=== PATIENT | male | born 1995 | race Caucasian/White ===

== ENCOUNTER 2017-02-22 21:02 | Emergency (ER) | payer BC, OTHER ==
[2017-02-22 21:21] VITALS: BP 141/91; PULSE 63; TEMP 98.8; BMI 25.8
--- NOTE | 2017-02-22 21:26 | PDOC ---
History of Present Illness - History of Present Illness Initial Comments: 02/22/17 21:33 The patient is a 21 year old male, with a significant past medical history GERD , who presents to the emergency department with cold and empty feeling to distal extremities, as well as, feeling jittery for 3 days. The patient states he woke up 3 days ago, after eating a super heavy meal the night before , with nausea, but denies vomiting. He states he has since been feeling jittery with a pressure-like headache. The patient also reports his hands and feet feel very cold, almost numb. The patient adds he has been spacing out and feeling as if he will pass out. The patient states he drinks three medium iced coffees daily, but only had one today. He denies chest pain and dizziness. He denies fever, chills, nausea, vomit, diarrhea and constipation. He denies dysuria, frequency, urgency and hematuria. PCP - Dr. Wagner ([facility]– [facility]) PAST MEDICAL HISTORY: no significant history PAST SURGICAL HISTORY: no significant history FAMILY HISTORY: no pertinent history SOCIAL HISTORY: denies illicit drug use. Denies tobacco use. Reports occasional alcohol use. Pt is a student in college, home for the summer now. ALLERGIES: As per nursing notes Adult ROS General: (+) feeling jittery. No fevers or chills, no weakness, no weight loss HEENT: No change in vision. No sore throat,. No ear pain CardioVascular: (+) shortness of breath. No chest pain. Respiratory:No cough, or wheezing. Gastrointestinal: no nausea, vomiting, diarrhea or constipation, No rectal bleeding Genitourinary: No dysuria, hematuria, or frequency Musculoskeletal: (+) bilateral hand and feet "cold, almost numb". No joint or muscle pain or swelling Neurologic: (+) pressure like headache. No vertigo, dizziness or loss of consciousness Psychiatric: nor depression Skin: No rashes or easy bruising Endocrine: no increased thirst or abnormal weight change Allergic: no skin or latex allergy All other systems reviewed and normal Adult Exam: General: Well-nourished well-developed individual, no acute distress HEENT: Throat: Normal, tonsils normal, no erythema or exudate Neck: Supple, no meningeal signs, no lymphadenopathy Eyes::Pupils equal reactive and round, extraocular motion intact Chest: Nontender to palpation Cardiac: S1-S2 normal, regular rate and rhythm, no murmurs rubs or gallops Respiratory: Lungs clear to auscultation bilateral Abdomen: Soft, nondistended, normal bowel sounds, nontender to palpation diffusely Extremities: Warm, dry, no cyanosis, clubbing, or edema Skin: No rashes Neuro: Alert and oriented x3, nonfocal exam, grossly intact, normal gait Psych: Normal mood and affect <Orly Masterson - Last Filed: 02/22/17 21:33> - General History Source: Patient Exam Limitations: No Limitations - History of Present Illness Initial Comments: 02/22/17 22:04 This is a 21-year-old male who comes in complaining of anxiety panic type symptoms. Patient was at his primary care doctor today with some hyperventilation and some paresthesias of his hands and perioral numbness. He was told that it is anxiety and the otherwise told to follow-up with a therapist. Patient now comes in because he was reading on the Internet and thinks he needs a workup for his symptoms. A basic workup was done including CBC and chemistries which were all normal. Patient was given Xanax with improvement of his symptoms Patient was told to follow-up with a therapist and discharged home with his mother. <Sendy Gilmore I - Last Filed: 02/22/17 22:05> - General Stated Complaint: FEELING JITTERY FOR COUPLE OF DAYS, HAS BEEN OCCUR Time Seen by Provider: 02/22/17 21:05 Past History <Orly Masterson - Last Filed: 02/22/17 21:33> - Past Medical History Other medical history: DENIES - Immunization History Immunization Up to Date: Yes - Psycho/Social/Smoking Cessation Hx Anxiety: No Suicidal Ideation: No Smoking Status: No Smoking History: Never smoked Have you smoked in the past 12 months: No Number of Cigarettes Smoked Daily: 0 Information on smoking cessation initiated: No Hx Alcohol Use: Yes (Q 2 WEEKS) Drug/Substance Use Hx: No <Sendy Gilmore I - Last Filed: 02/22/17 22:05> - Past Medical History Allergies/Adverse Reactions: Allergies Allergy/AdvReac Type Severity Reaction Status Date / Time No Known Allergies Allergy Verified 02/22/17 21:04 Home Medications: Ambulatory Orders NK [No Known Home Medication] 02/22/17 *Physical Exam - Vital Signs Last Vital Signs Temp Pulse Resp BP Pulse Ox 98.8 F 63 18 141/91 100 02/22/17 21:17 02/22/17 21:17 02/22/17 21:17 02/22/17 21:17 02/22/17 21:17 <Orly Masterson - Last Filed: 02/22/17 21:33> - Vital Signs Last Vital Signs Temp Pulse Resp BP Pulse Ox 98.8 F 63 18 141/91 100 02/22/17 21:17 02/22/17 21:17 02/22/17 21:17 02/22/17 21:17 02/22/17 21:17 <Sendy Gilmore I - Last Filed: 02/22/17 22:05> ED Treatment Course - LABORATORY CBC & Chemistry Diagram: 02/22/17 21:40 02/22/17 21:40 <Sendy Gilmore I - Last Filed: 02/22/17 22:05> *DC/Admit/Observation/Transfer - Attestations Scribe Attestion: 02/22/17 21:36 Documentation prepared by Orly Masterson, acting as center medical and lab director for Sendy Gilmore MD <Orly Masterson - Last Filed: 02/22/17 21:33> - Discharge Dispostion Admit: No <Sendy Gilmore I - Last Filed: 02/22/17 22:05> Diagnosis at time of Disposition: Anxiety - Discharge Dispostion Disposition: HOME Condition at time of disposition: Stable - Patient Instructions Additional Instructions: Follow-up with a therapist. Return to the emergency department immediately with ANY new, persistent or worsening symptoms. Continue any medications as previously prescribed by your physician. You should follow up with your primary doctor as soon as possible regarding today's emergency department visit. . Please make sure your doctor reviews the results of your emergency evaluation. Thank you for coming to the Emergency Department today for your care. It was a pleasure to see you today. Please note that your evaluation is INCOMPLETE until you follow-up with your doctor.
[2017-02-22] MEDS ORDERED: ALPRAZolam 0.25 MG TABLET PO STA (21:28)
[2017-02-22] MEDS ORDERED: ALPRAZolam 0.25 MG TABLET ONE (21:37)
[2017-02-22 22:03] LABS: BASOPHIL 1.1 % (0-2.0); EOSINOPHIL 2.6 % (0-4.5); MCH 29.8 pg (25.7-33.7); MCHC 34.2 g/dl (32.0-35.9); MEAN CELL VOLUME 87.3 fl (80-96); MEAN PLT VOLUME 8.2 fl (7.5-11.1); NEUTROPHILS 62.1 % (42.8-82.8); PLATELET COUNT 251 K/MM3 (134-434); RDW 12.4 % (11.9-15.9); WHITE BLOOD COUNT 8.3 K/mm3 (4.0-10.8)
[2017-02-22 22:12] LABS: ALK PHOS 69 U/L (32-92); ANION GAP 8 (8-16); BILIRUBIN,TOTAL 0.9 mg/dl (0.2-1.0); CALCIUM 9.6 mg/dl (8.4-10.2); CO2 26 mmol/L (22-28); GLUCOSE,RANDOM 106 mg/dl (74-106); SGOT/AST 33 U/L (10-42); SGPT/ALT 27 U/L (10-40); TOT PROT 8.1 g/dl (6.4-8.3)
== END 2017-02-22 22:33 | disposition home or self-care (01) ==
LOC: FER 21:02
DX: F41.9 Anxiety disorder, unspecified (principal)
CPT/HCPCS: 36415; 80053; 85025; 99281-25

== ENCOUNTER 2021-05-10 00:18 | Emergency (ER) | payer OTHER ==
[2021-05-10 00:23] VITALS: BP 126/70; PULSE 73; TEMP 99; BMI 26.0
[2021-05-10] MEDS ORDERED: DIPHTH,PERTUSS(ACELL),TET 0.5 ML DISP.SYRIN IM ONE ×2 (00:23→00:32)
[2021-05-10] MEDS ORDERED: CEPHALEXIN MONOHYDRATE 500 MG CAPSULE (UD) PO ONE (00:23)
[2021-05-10] MEDS ORDERED: CEPHALEXIN MONOHYDRATE 500 MG CAPSULE (UD) ONE (00:32)
== END 2021-05-10 00:39 | disposition home or self-care (01) ==
LOC: FER 00:18
PROC: 3E0234Z Introduction of Serum, Toxoid and Vaccine into Muscle, Percutaneous Approach (ICD-10-PCS; principal; 2021-05-10)
DX: S91.339A Puncture wound without foreign body, unspecified foot, initial encounter (principal); W45.0XXA Nail entering through skin, initial encounter
CPT/HCPCS: 90715; 99283-25

== ENCOUNTER 2021-11-01 23:10 | Emergency (ER) | payer BC, OTHER ==
[2021-11-01] MEDS ORDERED: SODIUM CHLORIDE 0.9% 500 ML INFUS.BAG IV ONE (23:12)
[2021-11-01] MEDS ORDERED: DIPHENOXYLATE 2.5/ATROPINE.025 1 COMBO TABLET PO ONE (23:12)
[2021-11-01 23:18] VITALS: BP 130/83; PULSE 86; TEMP 99.1; BMI 26.0
[2021-11-01] MEDS ORDERED: AMPICILLIN NA/SULBACTAM NA 1.5 GM in SODIUM CHLORIDE 100 ML IVPB ONE (23:24)
[2021-11-01] MEDS ORDERED: AMPICILLIN NA/SULBACTAM NA 1.5 GM VIAL ONE (23:32)
[2021-11-02 00:42] LABS: BASO % 0.3 % (0-2.0); EOS % 1.1 % (0-4.5); HEMOGLOBIN 14.3 GM/dL (11.7-16.9); MCH 30.1 pg (25.7-33.7); MEAN PLT VOLUME 7.9 fl (7.5-11.1); MONO % 15.3 % (3.8-10.2); NEUT % 63.3 % (42.8-82.8); PLATELET COUNT 220 10^3/uL (134-434); RBC 4.76 M/mm3 (4.00-5.60); RDW 13.1 % (11.9-15.9); WHITE BLOOD COUNT 5.8 K/mm3 (4.0-10.0)
[2021-11-02 00:43] LABS: ALBUMIN 3.4 g/dl (3.4-5.0); BLOOD UREA NITROGEN 21.7 mg/dL (7-18); CALCIUM 7.7 mg/dL (8.5-10.1)
[2021-11-02 00:48] LABS: BILIRUBIN,TOTAL 0.5 mg/dL (0.2-1); TOT PROT 7.2 g/dl (6.4-8.2)
== END 2021-11-02 00:52 | disposition home or self-care (01) ==
LOC: FER 23:10
PROC: 3E033GC Introduction of Other Therapeutic Substance into Peripheral Vein, Percutaneous Approach (ICD-10-PCS; principal; 2021-11-01)
DX: R19.7 Diarrhea, unspecified (principal)
CPT/HCPCS: 36415; 80053; 85025; 99284-25

== ENCOUNTER 2023-03-14 22:02 | Emergency (ER) | payer SELFPAY ==
[2023-03-14 22:10] VITALS: BP 151/69; PULSE 79; RESP 16; TEMP 98.5; BMI 26.6
== END 2023-03-14 23:30 | disposition home or self-care (01) ==
LOC: FER 22:02
DX: R07.89 Other chest pain (principal); R06.02 Shortness of breath; W19.XXXA Unspecified fall, initial encounter; Y93.22 Activity, ice hockey; Y92.328 Other athletic field as the place of occurrence of the external cause
CPT/HCPCS: 71046-TC-FY; 71101-TC-LT-FY; 99283-25

== ENCOUNTER 2023-08-17 15:16 | Emergency (ER) | payer OTHER ==
[2023-08-17 15:34] VITALS: BP 119/71; PULSE 60; RESP 18; TEMP 98.6; BMI 27.3
[2023-08-17] MEDS ORDERED: IBUPROFEN 400 MG TABLET (FP) PO ONE ×2 (17:28→17:34)
== END 2023-08-17 18:40 | disposition home or self-care (01) ==
LOC: FER 15:16
DX: M25.531 Pain in right wrist (principal); M25.561 Pain in right knee
CPT/HCPCS: 73110-TC-RT-FY; 73130-TC-RT-FY; 73562-TC-RT-FY; 99283-25

== ENCOUNTER 2024-03-05 17:11 | Emergency (ER) | payer OTHER ==
[2024-03-05 17:29] VITALS: BP 131/75; PULSE 63; RESP 18; TEMP 97.5; BMI 26.6
[2024-03-05] MEDS: ALBUTEROL SO4 2.5/IPRATROPIUM 0.5 INH SOL 3 ML VIAL.NEB. NEB SCH (18:30)
[2024-03-05] MEDS ORDERED: ALBUTEROL SO4 2.5/IPRATROPIUM 0.5 INH SOL 3 ML VIAL.NEB. NEB ONE (18:42)
== END 2024-03-05 19:38 | disposition home or self-care (01) ==
LOC: FER 17:11
PROC: 3E0F7GC Introduction of Other Therapeutic Substance into Respiratory Tract, Via Natural or Artificial Opening (ICD-10-PCS; principal; 2024-03-05)
DX: R07.89 Other chest pain (principal); J40 Bronchitis, not specified as acute or chronic; R05.9 Cough, unspecified; R06.02 Shortness of breath; Z20.822 Contact with and (suspected) exposure to COVID-19
CPT/HCPCS: 0241U-QW; 93005; 99284-25